=== PATIENT | male | born 1995 | race Caucasian/White ===

== ENCOUNTER → 2017-11-09 10:10 | Emergency (ER) | payer BC, OTHER ==
[~2017-11-09 10:10] MED LIST: Gelfoam 12-7 ADSORBABL SPONGE* 1 EA SPONGE ONE; Gelfoam 12-7 ADSORBABL SPONGE* 1 EA SPONGE TOPICAL ONE; Tetan/Diph/Pertus SYR(Tdap)* 0.5 ML SYR(BOOSTRIX) use SYR IM ONE
--- NOTE | 2017-11-09 11:36 | ED ---
Laceration/Wound HPI - HPI Summary HPI Summary: Patient is a 21-year-old male presenting to the ED with a skin avulsion to the left ring finger at the distal tip. He states it was a new sharp blade that he was attempting to cut a box and it slipped. Bleeding is controlled on arrival. Unknown last tetanus. - History of Current Complaint Stated Complaint: LT FINGER LAC Time Seen by Provider: 11/09/17 10:19 Hx Obtained From: Patient Mechanism of Injury: Sharp/Blunt Trauma Onset/Duration: Sudden Onset Aggravating: Movement Alleviating: Compression Timing: Constant Onset Severity: Mild Current Severity: Mild Pain Intensity: 1 Pain Scale Used: 0-10 Numeric Associated Signs & Symptoms: Negative Related Hx: Dominant Hand (Right) - Allergy/Home Medications Allergies/Adverse Reactions: Allergies Allergy/AdvReac Type Severity Reaction Status Date / Time Penicillins Allergy Hives Verified 11/09/17 10:19 PMH/Surg Hx/FS Hx/Imm Hx Previously Healthy: Yes - Surgical History Surgery Procedure, Year, and Place: 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; tonsils - Immunization History Hx Pertussis Vaccination: No Immunizations Up to Date: Unable to Obtain/Confirm Infectious Disease History: No Infectious Disease History: Denies: Hx Clostridium Difficile, Hx Hepatitis, Hx Human Immunodeficiency Virus (HIV), Hx of Known/Suspected MRSA, Hx Shingles, Hx Tuberculosis, Hx Known/ Suspected VRE, Hx Known/Suspected VRSA, History Other Infectious Disease, Traveled Outside the in Last 30 Days - Social History Occupation: Employed Full-time Lives: Alone Alcohol Use: Weekly Hx Substance Use: No Substance Use Type: Reports: None Hx Tobacco Use: Yes Smoking Status (MU): Former Smoker Type: Smokeless Tobacco Amount Used/How Often: 1 tin per 3 days Review of Systems Constitutional: Negative Negative: Fever, Chills, Fatigue Negative: Epistaxis, Dental Pain Negative: Palpitations, Chest Pain Genitourinary: Negative Positive: no symptoms reported, see HPI Negative: Arthralgia, Myalgia Positive: Other - skin avulsion to the distal tip of the left ring finger Negative: Weakness, Paresthesia, Numbness All Other Systems Reviewed And Are Negative: Yes Physical Exam Triage Information Reviewed: Yes Vital Signs On Initial Exam: Initial Vitals Temp Pulse Resp BP Pulse Ox 97.9 F 83 16 150/98 98 11/09/17 10:12 11/09/17 10:12 11/09/17 10:12 11/09/17 10:12 11/09/17 10:12 Vital Signs Reviewed: Yes Appearance: Positive: Well-Appearing, Well-Nourished Skin: Positive: Warm, Skin Color Reflects Adequate Perfusion, Other - Skin avulsion to the distal tip of the left ring finger without bony involvement Head/Face: Positive: Normal Head/Face Inspection Eyes: Positive: Normal, EOMI Neck: Positive: Supple, Nontender, No Lymphadenopathy Respiratory/Lung Sounds: Positive: Clear to Auscultation, Breath Sounds Present Cardiovascular: Positive: Normal, RRR Musculoskeletal: Positive: Normal, Strength/ROM Intact Neurological: Positive: Speech Normal Psychiatric: Positive: Normal, Affect/Mood Appropriate Diagnostics - Vital Signs Vital Signs Temp Pulse Resp BP Pulse Ox 11/09/17 10:12 97.9 F 83 16 150/98 98 - Laboratory Lab Statement: Any lab studies that have been ordered have been reviewed, and results considered in the medical decision making process. Laceration Repair Course/Dx - Course Course Of Treatment: During the course of treatment, the patient's evaluated for avulsion of the left distal tip of the ring finger. Skin avulsion. Full range of motion, bone does not appear to be involved. Denies any numbness or tingling. Bleeding is well controlled on arrival. Gelfoam applied to the distal tip, tube gauze applied. Compression dressing applied. Patient is given instructions for care. Tetanus up-to-date. No indications for antibiotics at this time. - Clinical Impression Provider Diagnoses: Skin avulsion Discharge - Sign-Out/Discharge Documenting (check all that apply): Discharge/Admit/Transfer - Discharge Plan Condition: Stable Disposition: HOME Patient Education Materials: Skin Avulsion (ED) Forms: *Work Release Referrals: Ruddy Mcknight MD [Primary Care Provider] - Additional Instructions: Keep the gel foam applied Tomorrow, change bandage to xeroform (given) for the next several days until granulation of the skin - Billing Disposition and Condition Condition: STABLE Disposition: Home
[2017-11-09 12:06] VITALS: BP 148/93
== END | disposition home or self-care (01) ==
LOC: ED 10:10
DX: S61.305A Unspecified open wound of left ring finger with damage to nail, initial encounter (principal); W26.8XXA Contact with other sharp object(s), not elsewhere classified, initial encounter; Y93.9 Activity, unspecified; Y92.9 Unspecified place or not applicable; Z23 Encounter for immunization; Z88.0 Allergy status to penicillin; Z87.891 Personal history of nicotine dependence
CPT/HCPCS: 90471; 90715; 99282; A9270-GY